=== PATIENT | male | born 1930 | race Caucasian/White ===

== ENCOUNTER 2016-11-30 08:02 | Inpatient (IN) | payer OTHER, MEDICARE ==
[~2016-11-30] VITALS: Ht 170.2 cm; Wt 64.9 kg
--- NOTE | ~2016-11-30 | H ---
[facility] [place] [address] HISTORY AND PHYSICAL Name: SHANNAN LEMON Room #: 419-P ADM IN M.R.#: [id number] Admission: 11/30/16 Attend Phys: Baltazar Winter MD Discharge: Date of : 11/[birth year] Report #: [id number] THIS REPORT FOR: //name// CC: Baltazar Cuello DATE OF SERVICE: 11/30/2016 CHIEF COMPLAINT: An 86-year-old patient presents with refractory edema and aggressive renal failure. HISTORY OF PRESENT ILLNESS: The patient is well known to our service, has been followed sometime with progressive chronic kidney disease. His creatinine is gradually elevated. His GFR is extremely low. He has very low muscle mass and he has had refractory edema, refractory to multiple outpatient diuretic therapies, now admitted for further treatment of his edema and consideration for chronic dialysis. PAST MEDICAL HISTORY: Progressive renal disease as mentioned. He has a previous mitral valve replacement and previous coronary bypass. 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 Morrison at . He has been treated with erythropoietin as well as some iron. He has a history of gout, has had trouble with hyperkalemia and underwent a right AV fistula placement a couple of months ago, but this clotted off. HOME MEDICATIONS: Include allopurinol 100 mg daily, carvedilol 12.5 mg b.i.d., hydroxyurea 500 mg daily, pravastatin 10 mg daily, torsemide 40 mg b.i.d., Coumadin, Veltassa and metolazone 10 mg daily. FAMILY HISTORY: Noncontributory. SOCIAL HISTORY: Lives at home with his . No cigarettes or alcohol. REVIEW OF SYSTEMS: GENERAL: He has been feeling poorly and had been more confused. EYES: Vision is okay. ENT: No trouble with his hearing. He swallows okay. No mouth sores or ulcers. ENDOCRINE: No diabetes or thyroid disease. RESPIRATORY: Denies shortness of breath. CARDIAC: He has had very bad swelling of his legs, which is going up and including his scrotum. GASTROINTESTINAL: No nausea, vomiting or diarrhea, but appetite is poor. GENITOURINARY: Urinary stream is a little compromised. NEUROLOGIC: He has had weakness and confusion. MUSCULOSKELETAL: He fell and he has some wound down his left hand that required [facility] [address] [place] [address] HISTORY AND PHYSICAL Name: SHANNAN LEMON Room #: 419-P [facility] IN .R.#: [id number] Admission: 11/30/16 Attend Phys: Baltazar Winter MD Discharge: Date of : 11/11/[birth year] Report #: [id number] sutures when he was in the ER last week. PHYSICAL EXAMINATION: GENERAL: Ill-appearing, somewhat cachectic gentleman. SKIN: Multiple ecchymoses and he has got a wound on his left hand and this has a dressing on it. HEENT: Extraocular movements are full. No scleral icterus. Hearing and vision are intact. Mucous membranes are slightly dry. NECK: Supple. There is no JVD. CHEST: Shows slightly diminished breath sounds at the bases. HEART: Regular. ABDOMEN: Soft and nontender. EXTREMITIES: Show edema through the legs up to the scrotum, 4+ in the legs. LABORATORY DATA: Pending. ASSESSMENT AND PLAN: 1. Chronic kidney disease stage V. He has underlying renal failure. We had been planning on dialysis now. The family and attending physicians are having second thoughts and we may elect not to treat with dialysis. We will try some stronger diuretics and palliative treatments, possibly get hospice involved. 2. Mitral valve replacement. 3. History of coronary bypass. 4. Refractory edema. 5. Myeloproliferative disorder with leukocytosis and thrombocytosis, on hydroxyurea. 6. History of gout. 7. Left hand wound, status post fall. <ELECTRONICALLY SIGNED> By: Baltazar Winter MD 12/01/16 1111 0921 1000 Baltazar Winter MD /nt
--- NOTE | ~2016-11-30 | EKG ---
[address] [place] [place] [address] ELECTROCARDIOGRAM REPORT Name: SHANNAN LEMON Room #: 419-P ADM IN M.R.#: [id number] Admission: 11/30/16 Attend Phys: Baltazar Winter MD Discharge: Date of : 11/[birth year] Report #: [id number] THIS REPORT FOR: //name// [facility] Test Date: 2016-11-30 Test Time: 17:21:23 Pat Name: SHANNAN LEMON Department: Room: 419 P Gender: M Technical Sales Engineer: Ce AMADO : 1930 Requested By: Baltazar Winter Order Number: [id number] MD: Edgar Betancur Measurements Intervals Gary Rate: 70 P: MD: QRS: 80 QRSD: 164 T: 246 QT: 512 QTc: 553 Interpretive Statements Ventricular pacing Occasional intrinsic depolarizations no previous ECGs available for comparison Electronically Signed On 12-01-2016 8:30:27 [employer] by Edgar Betancur [email or web address] <ELECTRONICALLY SIGNED> By: Edgar Betancur MD, [facility] 12/01/16 0830 1721 1721 Edgar Betancur MD, FACC /EPI
--- NOTE | ~2016-11-30 | D ---
[facility] [place] [address] DISCHARGE SUMMARY Name: SHANNAN LEMON Room #: 419-P [facility] IN M.R.#: [id number] Admission: 11/30/16 Attend Phys: Baltazar Winter MD Discharge: 12/06/16 Date of : [birth year]/11/[birth year] Report #: [id number] THIS REPORT FOR: //name// CC: Baltazar Cuello DATE OF ADMISSION: 11/30/2016. DATE OF DISCHARGE: 12/06/2016. REASON FOR ADMISSION: The patient was admitted with progressive uremia and fluid overload. HOSPITAL COURSE: He was admitted with progressive uremia and fluid overload. He also had a wound on his left hand after a fall and sutures in the wound. He had developed some hemoptysis. He was felt to have a possible community-acquired pneumonia, was treated with antibiotics and improved. Prolonged discussions were held with the family regarding the approach of treatment to his progressive renal failure. It was decided that the patient was not an appropriate candidate for chronic dialysis therapy and will be treated conservatively. Prolonged discussions were held both with the patient's , the patient and also the patient's son. The patient was then treated with both the antibiotics as mentioned above and diuretics. He improved nicely. His diet was liberalized. He got stronger, was felt ready to discharge to intermediate to progress with rehab and conservative therapy. Medications were adjusted and he was stable and ready for discharge. FINAL DIAGNOSES: 1. Progressive renal disease, uremia with CKD 5. 2. Cognitive impairment, mild to moderate. 3. Mitral valve requiring anticoagulation. 4. Community-acquired pneumonia, treated. 5. Myeloproliferative disorder with anemia and leukocytosis. 6. Left hand wound. Follow up will be in our office in 2 weeks in the intermediate facility with the house doctor. The patient will require weekly Protonix and adjustment. I will send him home on 3 days of Lovenox and he is on Coumadin 2 mg a day and that will have to be adjusted. Follow up will be as mentioned in our office in 2 weeks. MEDICATIONS AT DISCHARGE: Include Lovenox 30 mg h.s. for 3 days, Coreg 12.5 mg b.i.d., torsemide 40 mg daily, hydroxyurea 500 mg daily, Coumadin 2 mg daily to be adjusted, Zaroxolyn 10 mg daily, allopurinol 100 mg daily. [address] [address] DISCHARGE SUMMARY Name: SHANNAN LEMON Room #: 419-P [facility] IN Ce.RSamson#: [id number] Admission: 11/30/16 Attend Phys: Baltazar Winter MD Discharge: 12/06/16 Date of : [birth year] Report #: [id number] CONDITION AT DISCHARGE: Is fair and the patient is no code blue. <ELECTRONICALLY SIGNED> By: Baltazar Winter MD 12/07/16 1212 0853 0958 Baltazar Winter MD /nt
[~2016-11-30 08:02] MED LIST: ADULT LOW DOSE81 MG PO; ALLOPURINOL 10100 M1 PO; ALPRAZOLAM 0.0.25 MG PO; AMBIEN 5 MG TABL5 MG PO; ASPIRIN81 M2 PO; CARVEDILOL12.5 MG PO; CARVEDILOL25 MG; CENTRUM CARDIO1 EACH PO; CIPROFLOXACIN500 M1 PO; COUMADIN 2 MG TA2 M1 PO; COUMADIN 4 MG TA4 M1 PO; COUMADIN 5 MG TA5 M1 PO; DEMADEX10 MG; DEMADEX10 MG PO; DEMADEX20 MG PO; DOXEPIN 10 MG C10 MG; DOXEPIN 10 MG C10 MG PO; ENOXAPARIN60 MG/0.1 SUBQ; HYDREA 500 MG500 M1; HYDREA 500 MG500 M1 PO; LOVENOX SC; MULTIVITAMINS1 EAC7 PO; NORCO 5-325 TA1 EACH PO; NORVASC 5 MG TAB5 MG PO; PRAVASTATIN SOD10 MG PO; TOPROL XL50 MG PO; TYLENOL EX-STR500 M2 PO; WARFARIN; [UNRECOGNIZED DRUG - OTHER]
[2016-11-30 08:45] VITALS: BP 132/59
[2016-11-30] MEDS ORDERED: COUMADIN 2 MG TA2 M1 PO (09:14)
[2016-11-30 10:56] LABS: HEMATOCRIT 34.6 % (42.0-52.0); HEMOGLOBIN 10.4 gm/dL (14.0-18.0); MCH 34.3 pg (26.0-34.0); MCHC 30.1 % (28.0-37.0); MCV 113.9 fL (80.0-100.0); PLATELET COUNT 276 thou/uL (150-400); RBC 3.04 mil/uL (4.50-6.00); RDW 19.2 % (10.5-14.5)
[2016-11-30 11:07] LABS: ALBUMIN 2.9 g/dL (3.4-5.0); CREATININE 3.7 mg/dL (0.6-1.3); PHOSPHORUS 4.4 mg/dL (2.5-4.9); POTASSIUM 3.1 mmol/L (3.5-5.1); TOTAL BILIRUBIN 1.1 mg/dL (<0.1-1.0); TOTAL PROTEIN 5.8 g/dL (6.4-8.2)
[2016-11-30 11:09] LABS: MANUAL DIFF YES; WBC 50.4 thou/uL (4.0-11.0)
[2016-11-30 11:41] LABS: ABSOLUTE NEUTROPHILS 47.9 thou/uL (1.4-8.2); ANISOCYTOSIS 1+; MACROCYTES 1+; TOTAL CELL COUNT 100
[2016-11-30 13:13] LABS: URINE BILIRUBIN NEGATIVE (Negative); URINE BLOOD TRACE (Negative); URINE COLOR YELLOW; URINE GLUCOSE-RANDOM* NEGATIVE (Negative); URINE KETONES NEGATIVE (Negative); URINE LEUKOCYTES-REFLEX NEGATIVE (Negative); URINE PROTEIN (DIPSTICK) 1+ (Negative); URINE SPECIFIC GRAVITY 1.015 (1.003-1.035); URINE UROBILINOGEN 0.2 E.U./dl (0.2-1.0)
[2016-11-30 13:21] LABS: SQUAMOUS None Seen /LPF (0-3); URINE RBC 0-2 Rare /HPF (0-2); URINE WBC-REFLEX None Seen /HPF (0-5)
[2016-11-30 13:22] LABS: CASTS None Seen /LPF (None Seen); CRYSTALS None Seen /LPF (None Seen)
[2016-11-30 15:28] VITALS: BP 98/60
[2016-11-30 17:20] VITALS: BP 136/59
[2016-11-30 18:24] LABS: INR 2.6; PROTIME 26.7 Seconds (9.3-11.4)
[2016-11-30 20:00] VITALS: BP 130/49
[2016-12-01 04:00] VITALS: BP 115/56
[2016-12-01 07:44] VITALS: BP 136/61
[2016-12-01 15:58] VITALS: BP 125/75
[2016-12-01 20:00] VITALS: BP 115/44; BP 127/66
[2016-12-02 04:00] VITALS: BP 128/44
[2016-12-02 06:50] LABS: PHOSPHORUS 4.9 mg/dL (2.5-4.9); POTASSIUM 3.5 mmol/L (3.5-5.1)
[2016-12-02 07:45] VITALS: BP 115/54
[2016-12-02 16:23] VITALS: BP 106/59
[2016-12-02 20:00] VITALS: BP 106/55
[2016-12-03 04:16] VITALS: BP 131/65
[2016-12-03 06:08] LABS: INR 1.6; PROTIME 16.7 Seconds (9.3-11.4)
[2016-12-03 06:15] LABS: ALBUMIN 2.9 g/dL (3.4-5.0); CALCIUM 8.6 mg/dL (8.5-10.1); CREATININE 4.4 mg/dL (0.6-1.3); PHOSPHORUS 5.6 mg/dL (2.5-4.9); POTASSIUM 4.1 mmol/L (3.5-5.1)
[2016-12-03 07:36] VITALS: BP 142/69
[2016-12-03 14:59] VITALS: BP 112/63
[2016-12-03 20:00] VITALS: BP 125/65
[2016-12-04 04:30] VITALS: BP 126/67
[2016-12-04 07:26] VITALS: BP 148/64
[2016-12-04 16:28] VITALS: BP 114/58
[2016-12-04 20:00] VITALS: BP 107/57
[2016-12-05 04:00] VITALS: BP 122/66
[2016-12-05 07:28] VITALS: BP 124/57
[2016-12-05 15:53] VITALS: BP 111/49
[2016-12-05 20:00] VITALS: BP 102/64
[2016-12-06 04:00] VITALS: BP 123/68
[2016-12-06 05:47] LABS: INR 1.3; PROTIME 13.6 Seconds (9.3-11.4)
[2016-12-06 05:57] LABS: CALCIUM 8.3 mg/dL (8.5-10.1); CREATININE 4.5 mg/dL (0.6-1.3); PHOSPHORUS 7.5 mg/dL (2.5-4.9); POTASSIUM 4.5 mmol/L (3.5-5.1)
[2016-12-06 07:29] VITALS: BP 119/62
[2016-12-06] MEDS ORDERED: ENOXAPARIN30 MG/0.1 SUBQ (08:33)
[2016-12-06] MEDS ORDERED: METOLAZONE 5 MG5 MG PO (08:36)
== END 2016-12-06 11:16 | DRG 871 ==
LOC: 4E 08:02
PROVIDERS: Internal Medicine Nephrology
DX: A41.9 Sepsis, unspecified organism (principal); J18.9 Pneumonia, unspecified organism; N18.5 Chronic kidney disease, stage 5; C94.6 Myelodysplastic disease, not elsewhere classified; L03.012 Cellulitis of left finger; G31.84 Mild cognitive impairment of uncertain or unknown etiology; I25.10 Atherosclerotic heart disease of native coronary artery without angina pectoris; D64.9 Anemia, unspecified; D72.829 Elevated white blood cell count, unspecified; D47.3 Essential (hemorrhagic) thrombocythemia; M10.9 Gout, unspecified; I50.9 Heart failure, unspecified; L89.151 Pressure ulcer of sacral region, stage 1; Z79.01 Long term (current) use of anticoagulants; Z95.2 Presence of prosthetic heart valve
CPT/HCPCS: 10183